=== PATIENT | female | born 1940 | race Caucasian/White ===

== ENCOUNTER 2022-01-03 16:38 | Emergency (ER) | payer MEDICARE, OTHER ==
[~2022-01-03] VITALS: Ht 162.6 cm; Wt 65.1 kg
[~2022-01-03 16:38] MED LIST: LEXAPRO10 MG PO; PREVACID30 M1
[2022-01-03] MEDS ORDERED: BUPROPION HCL100 MG PO (17:29)
[2022-01-03] MEDS ORDERED: ALIGN4 MG (17:29)
[2022-01-03] MEDS ORDERED: ALLEGRA ALLERGY60 MG PO (17:29)
[2022-01-03] MEDS ORDERED: COMPLETE M9 MG/15 ML (17:29)
[2022-01-03] MEDS ORDERED: VITAMIN D325 MCG (17:29)
[2022-01-03] MEDS ORDERED: CALCIUM 600 +1 EAC2 (17:29)
[2022-01-03] MEDS ORDERED: XANAX0.25 MG PO (17:29)
[2022-01-03] MEDS ORDERED: LOMOTIL TABLET1 EACH PO (17:29)
[2022-01-03] MEDS ORDERED: IBUPROFEN 600 MG TAB PO STA (18:41)
[2022-01-03] MEDS ORDERED: IBUPROFEN 600 MG TAB ONE (18:54)
== END 2022-01-03 20:39 | disposition home or self-care (01) ==
LOC: FSED 17:10
DX: S52.502A Unspecified fracture of the lower end of left radius, initial encounter for closed fracture (principal); V89.2XXA Person injured in unspecified motor-vehicle accident, traffic, initial encounter; F41.9 Anxiety disorder, unspecified; F32.A Depression, unspecified; F17.200 Nicotine dependence, unspecified, uncomplicated; Z88.1 Allergy status to other antibiotic agents; Z88.0 Allergy status to penicillin; Z88.2 Allergy status to sulfonamides
CPT/HCPCS: 99283